=== PATIENT | female | born 1975 | race Caucasian/White ===

== ENCOUNTER 2018-06-11 05:22 | Observation (INO) ==
[2018-06-11] MEDS ORDERED: Metoprolol Tartrate 25 MG Tablet PO ONE (05:45)
[2018-06-11] MEDS ORDERED: Chlorhexidine Gluconate 2% 1 Pack (2 Cloths) TOPICAL ONE (05:45)
[2018-06-11] MEDS ORDERED: Sodium Chlor 0.9% Inj 500 ML IV.SIG SCH (06:00)
[2018-06-11] MEDS ORDERED: Bupivacaine/Epinephrine Inj 0.25% 50 ML Vial ONE (06:14)
[2018-06-11] MEDS ORDERED: HYDROmorphone PF Inj 1 MG/ML Ampul IV.PUSH PRN (07:32)
[2018-06-11] MEDS ORDERED: Zolpidem Tartrate 5 MG Tablet PO PRN (07:32)
[2018-06-11] MEDS ORDERED: Bupivacaine PF 0.5% Inj 10 ML Vial ONE (08:57)
[2018-06-11] MEDS ORDERED: Bupivacaine Liposomal PF 1.3% Inj 20 ML Vial ONE (08:57)
--- NOTE | 2018-06-11 09:23 | MP ---
cc: Tarik Alfaro MD DATE OF OPERATION: 06/11/2018 PREOPERATIVE DIAGNOSES: 1. Menorrhagia. 2. Dysmenorrhea. POSTOPERATIVE DIAGNOSES: 1. Menorrhagia. 2. Dysmenorrhea. PROCEDURES PERFORMED: Laparoscopy with LASH and bilateral salpingectomy. ANESTHESIA: General, ET. SURGEON: Tarik Alfaro MD INS[employer] SALES ASSOCIATE: JOSE A Raymond. ESTIMATED BLOOD LOSS: 50 mL. FLUIDS: 1.2 liters crystalloid. OBJECTIVE FINDINGS: Following induction of adequate general endotracheal anesthesia, the patient was prepped and draped supine on the operating table in dorsal lithotomy position in usual sterile fashion, with the bladder being drained via Forrester catheterization. The abdomen was opened through a 3 cm curving infraumbilical incision using a knife to cut down through the skin to the fascia. The fascia opened transversely, stripped from the muscles, rectus muscle split in the midline, and the peritoneum opened sharply, and extended. The mini GelPort was placed, laparoscope inserted. A 5 port placed in left lower quadrant AirSeal right lower quadrant. Uterus about 12-week size, symmetrically enlarged. Normal tubes, normal ovaries, normal cul-de-sacs, normal liver edge. Working first on the left, my scalpel was used to take the left mesosalpinx, left round ligament, left broad ligament, left side of bladder flap, and left uterine vessels, same on the right. Harmonic scalpel was now used to amputate the fundus from the cervix. A pouch inserted to extract the tubes and fundus intact through the GelPort site. Irrigation was now performed. One area of bleeding on the round ligament on the right side was controlled with Harmonic scalpel, as well as one on the right side of the cervix. Low pressure test with no bleeding. Ureters showed bilateral peristalsis. Bleeding was checked in the supine and the Trendelenburg position of low pressure. The operative sites were coated with Evicel. The GelPort was now removed and the peritoneum closed with a running 2-0 Vicryl, the fascia with a running locking stitch of 0 Vicryl corner midline and tied, subcutaneous running 3-0 Vicryl, and the skin with running subcuticular 3-0 Monocryl. The scope was now reinserted through the lower ports to check the GelPort site, which was well closed with no entrapment of tissue. Pelvis inspected. There was no bleeding. The scope was now removed. Gas allowed to escape. Small ports were removed and closed with 3-0 Monocryl. Dermabond applied. The counts were correct. The patient will receive a TAP block and go to recovery. Tarik Alfaro MD JAW/em , 08:53 AM , 09:01 AM
[2018-06-11] MEDS ORDERED: fentaNYL Citrate Inj 100 MCG/2 ML Ampul ONE (09:27)
[2018-06-11] MEDS: Dextrose 5%/NaCl 0.45% Inj 1,000 ML IV.CONT SCH ×3 (09:43→17:30)
[2018-06-11 09:55] LABS: Hematocrit 34.8 % (35.0-46.0); Hemoglobin 12.1 gm/dL (11.6-15.3); Mean Corpuscular HGB Conc 34.7 % (32.0-36.0); Mean Platelet Volume 8.3 fL (7.0-11.0); Platelet Count 237 th/mm3 (150-450); Red Blood Count 3.78 mil/mm3 (4.00-5.30); Red Cell Distribution Width 13.1 % (11.6-17.2); White Blood Count 7.3 th/mm3 (4.0-11.0)
[2018-06-11] MEDS: Ketorolac Inj 30 MG/ML (IVP) Vial IV.PUSH SCH ×3 (10:08→20:29)
[2018-06-11] MEDS ORDERED: *morphine SULFATE 4 MG/ML PERIprocedure ONLY ONE (10:19)
[2018-06-12] MEDS: Ketorolac Inj 30 MG/ML (IVP) Vial IV.PUSH SCH (01:55)
[2018-06-12] MEDS: Dextrose 5%/NaCl 0.45% Inj 1,000 ML IV.CONT SCH ×2 (02:12→11:23)
[2018-06-12 05:33] LABS: Baso % (Auto) 0.3 % (0.0-2.0); Hematocrit 32.9 % (35.0-46.0); Hemoglobin 11.5 gm/dL (11.6-15.3); Lymph # (Auto) 1.8 th/mm3 (1.0-4.8); Mean Corpuscular HGB Conc 34.9 % (32.0-36.0); Mean Corpuscular Volume 91.6 fL (80.0-100.0); Mean Platelet Volume 8.4 fL (7.0-11.0); Mono # (Auto) 0.8 th/mm3 (0.0-0.9); Mono % (Auto) 5.8 % (0.0-8.0); Neut % (Auto) 81.9 % (16.0-70.0); Platelet Count 246 th/mm3 (150-450); Red Cell Distribution Width 12.7 % (11.6-17.2); White Blood Count 14.6 th/mm3 (4.0-11.0)
[2018-06-12 08:29] VITALS: RESP 20
[2018-06-12 11:29] VITALS: BP 121/75; PULSE 98; TEMP 98.3; O2SAT 100
== END 2018-06-12 16:00 | disposition home or self-care (01) ==
LOC: HOR 05:22 → HSDI 05:22 → HCIN 16:38
PROVIDERS: ADMIT Obstetrics & Gynecology; ATTEND Obstetrics & Gynecology
PROC: LAPLASH (ICD-10-PCS; 2018-06-11 07:38)